=== PATIENT | male | born 1980 | race Caucasian/White ===

== ENCOUNTER 2018-10-13 13:27 | Emergency (ER) | payer MEDICAID ==
--- NOTE | 2018-10-13 14:14 | ED Physician Documentation ---
PD HPI MHE - Stated complaint Stated Complaint: MHE - Chief complaint Chief Complaint: MHE - History obtained from History obtained from: Patient, Family - History of Present Illness Primary symptom: Self harm - other, Psychosis, Off meds Timing - onset: Yesterday Contributing factors: No: Substance abuse - ETOH Similar symptoms before: Diagnosis (Bipolar) Recently seen: Not recently seen - Additional information Additional information: This is a 38-year-old man who lives with his parents who presents for evaluation for psychiatric eval. Patient just tells me that he is "going crazy". He says he is not hearing voices seeing things. He does not feel suicidal. He does have a history of bipolar disorder and was on medications, Depakote" a long time ago but says that he is never been admitted to the hospital before for psychiatric reasons. He denies any physical illness sore throat, coughing, vomiting, fever. He says he is waiting for his dad to give him a shower and just keeps repeating that. Patient keeps his eyes closed throughout the entire interview he looks angry with pursed lips and frequently shakes his head no. Parents are at the bedside and tell me that he does have a history of psychiatric admissions for bipolar 1 time in 2008 at [facility] where he was there for about 2 weeks that is when I think he was on the Depakote medication. There was another time when he was living in [place] that he may have been admitted to a psychiatric hospital but they are not certain that was what the admission actually was. 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 He is been getting progressively more irritable and they do not think he is sleeping well. Yesterday dad heard some loud banging noises coming from downstairs in the basement where the patient has been staying so he went downstairs and found him curled up in a position in the corner of the room. He would not talk to him at all. He was clutching at his hair pulling it out. His mother got him u pstairs with them by reciting some Hail Gris's in the boards prior. Once he was up there he was just sitting on the couch not saying anything with his eyes closed. They convinced him to stay upstairs for the night but about 2 AM this morning he was on the front porch ringing the doorbell repeatedly and although he was not violent he was acting just unusual. Seems to be angry all the time. To their knowledge there is no substance abuse or alcoholism. 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 They did hear him coughing pretty violently couple of days ago and he complained of a sore throat after that. He is felt warm. Review of Systems Unable to obtain: Other (Patient incapable of providing accurate history.) Constitutional: denies: Fever Respiratory: reports: Cough GI: denies: Nausea, Vomiting PD PAST MEDICAL HISTORY - Past Medical History Psych: Bipolar disorder - Present Medications Home Medications: Ambulatory Orders Medication Instructions Recorded Confirmed No Known Home Medications 10/13/18 10/13/18 - Allergies Allergies/Adverse Reactions: Allergies Allergy/AdvReac Type Severity Reaction Status Date / Time No Known Drug Allergies Allergy Verified 10/13/18 13:39 PD ED PE NORMAL - Vitals Vital signs reviewed: Yes - General General: Alert and oriented X 3, No acute distress, Well developed/nourished, Other (Patient is laying on the exam table with his eyes closed. He did open them at my request so that I can see his pupils but he would not look at me otherwise. He has his lips pursed and is shaking his head no on frequent occasion. He declined several of the exam items requested although he did allow me to listen to his heart and his lungs.) - HEENT HEENT: Atraumatic, PERRL, Moist mucous membranes, Pharynx benign - Cardiac Cardiac: RRR, No murmur - Respiratory Respiratory: No respiratory distress, Clear bilaterally - Abdomen Abdomen: Normal bowel sounds, Soft - Derm Derm: Other (Would not allow me to examine his upper extremities or wrists.) - Neuro Neuro: Other (Patient does know that he is at the hospital. He does not know what day it is. He tells me that he has not seen his parents in quite some time even though they are sitting directly at the bedside.) - Psych Psych: Other (See above.) Results - Vitals Vitals: Vital Signs - 24 hr 10/13/18 10/13/18 10/13/18 13:34 15:57 22:56 Temperature 36.9 C Heart Rate 80 66 76 Respiratory 18 14 14 Rate Blood Pressure 137/84 H 131/78 H 110/78 O2 Saturation 100 100 98 Oxygen O2 Source Room air - EKG (time done) 1430 Rate: Rate (enter#) Rhythm: NSR Ischemia: Normal ST segments Other comments: Other comments (There is a lot of artifact but I do not agree with the interpretation that this is atrial fibrillation. Plan to repeat an EKG to see if we can get less artifact.) Compare to prior EKG: Old EKG unavailable Computer interpretation: Disagree with computer 1529 Rate: Rate (enter#) Rhythm: NSR Intervals: Normal MT QRS: Normal Ischemia: Normal ST segments, T wave inversion (III and aVF) Compare to prior EKG: Changed from prior EKG (The prior EKG done an hour ago had artifact that made it look like he was in a flutter.) Computer interpretation: Agree with computer - Labs Labs: Laboratory Tests 10/13/18 10/13/18 10/13/18 14:22 14:22 14:22 WBC 6.6 RBC 4.76 Hgb 14.4 Hct 42.6 MCV 89.5 MCH 30.2 MCHC 33.7 RDW 12.7 Plt Count 243 MPV 7.5 Neut # (Auto) 3.6 Lymph # (Auto) 2.3 [place] # (Auto) 0.5 Eos # (Auto) 0.1 Baso # (Auto) 0.1 Absolute Nucleated RBC 0.00 Nucleated RBC % 0.1 Sodium 138 Potassium 3.3 L Chloride 102 Carbon Dioxide 23 Anion Gap 13.0 BUN 15 Creatinine 0.8 Estimated GFR (MDRD) 107 Glucose 91 Calcium 9.9 Total Bilirubin 1.5 H AST 23 ALT 13 Alkaline Phosphatase 51 Total Protein 8.3 H Albumin 4.6 Globulin 3.7 Albumin/Globulin Ratio 1.2 Lipase 31 TSH 1.90 Urine Color Urine Clarity Urine pH Ur Specific [place] Urine Protein Urine Glucose (UA) Urine Ketones Urine Occult Blood Urine Nitrite Urine Bilirubin Urine Urobilinogen Ur Leukocyte Esterase Ur Microscopic Review Urine Culture Comments Salicylates < 6.0 Urine Opiates Screen Ur Oxycodone Screen Urine Methadone Screen Ur Propoxyphene Screen Acetaminophen < 10 L Ur Barbiturates Screen Ur Tricyclics Screen Ur Phencyclidine Scrn Ur Amphetamine Screen U Methamphetamines Scrn U Benzodiazepines Scrn Urine Cocaine Screen U Cannabinoids Screen Ethyl Alcohol < 5.0 10/13/18 15:22 WBC RBC Hgb Hct MCV MCH MCHC RDW Plt Count MPV Neut # (Auto) Lymph # (Auto) [place] # (Auto) Eos # (Auto) Baso # (Auto) Absolute Nucleated RBC Nucleated RBC % Sodium Potassium Chloride Carbon Dioxide Anion Gap BUN Creatinine Estimated GFR (MDRD) Glucose Calcium Total Bilirubin AST ALT Alkaline Phosphatase Total Protein Albumin Globulin Albumin/Globulin Ratio Lipase TSH Urine Color YELLOW Urine Clarity CLEAR Urine pH 6.0 Ur Specific [place] 1.025 Urine Protein NEGATIVE Urine Glucose (UA) NEGATIVE Urine Ketones TRACE Urine Occult Blood NEGATIVE Urine Nitrite NEGATIVE Urine Bilirubin NEGATIVE Urine Urobilinogen 0.2 (NORMAL) Ur Leukocyte Esterase NEGATIVE Ur Microscopic Review NOT INDICATED Urine Culture Comments NOT INDICATED Salicylates Urine Opiates Screen NEGATIVE Ur Oxycodone Screen NEGATIVE Urine Methadone Screen NEGATIVE Ur Propoxyphene Screen NEGATIVE Acetaminophen Ur Barbiturates Screen NEGATIVE Ur Tricyclics Screen NEGATIVE Ur Phencyclidine Scrn NEGATIVE Ur Amphetamine Screen NEGATIVE U Methamphetamines Scrn NEGATIVE U Benzodiazepines Scrn NEGATIVE Urine Cocaine Screen NEGATIVE U Cannabinoids Screen NEGATIVE Ethyl Alcohol - Rads (name of study) CXR Radiology: See rad report (Neg acute) head CT Radiology: See rad report (neg acute) PD MEDICAL DECISION MAKING - ED course Complexity details: re-evaluated patient ED course: 1535:The patient is lying on the exam table on his back. He is repeatedly saying "do not do this to me". He is got his eyes clenched shut he is moving his legs and arms just randomly. He cannot tell me what it is that he wants someone to stop doing to him. He reiterated to me that he wants help but cannot specify from what. We are awaiting the results of the drug screen so that we can contact social work for any evaluation. Patient has become increasingly more agitated as he has spent time here in the department at times he is moaning and thrashing around in the bed but not aggressive in any way. He actually seems to me like he is hallucinating because he keeps requesting that we "do not do that to him". He was evaluated by our social work team who feels that he needs involuntary placement because he cannot consent for treatment in his current mental state. The [facility] pit manager was here I discussed the case at length with her she feels the patient should be admitted as I do and is good to work on placement. The DCMP worker was unsuccessful at finding him placement tonight. This was discussed with the family regarding keep him here overnight and try again in the morning. Plan to medicate him only if needed. Care will be turned over to Dr. Mcelroy.
[2018-10-13 14:30] LABS: BASOPHILS # (AUTO) 0.1 10^3/uL (0.0-0.1); BASOPHILS % (AUTO) 0.8 %; EOSINOPHILS # (AUTO) 0.1 10^3/uL (0.0-0.7); EOSINOPHILS % (AUTO) 1.2 %; HGB - HEMOGLOBIN 14.4 g/dL (14.0-18.0); LYMPHOCYTES # (AUTO) 2.3 10^3/uL (1.5-3.5); LYMPHOCYTES % (AUTO) 34.9 %; MEAN CORPUSCULAR HEMOGLOBIN 30.2 pg (27.0-31.0); MEAN CORPUSCULAR HGB CONC 33.7 g/dL (32.0-36.0); MEAN CORPUSCULAR VOLUME 89.5 fL (80.0-94.0); MEAN PLATELET VOLUME 7.5 fL (7.4-11.4); MONOCYTES # (AUTO) 0.5 10^3/uL (0.0-1.0); MONOCYTES % (AUTO) 8.2 %; NEUTROPHILS # (AUTO) 3.6 10^3/uL (1.5-6.6); NEUTROPHILS % (AUTO) 54.9 %; PLT - PLATELET COUNT 243 10^3/uL (130-450); RED BLOOD COUNT 4.76 10^6/uL (4.70-6.10); RED CELL DISTRIBUTION WIDTH 12.7 % (12.0-15.0); WHITE BLOOD COUNT 6.6 x10^3/uL (4.8-10.8)
[2018-10-13 14:44] LABS: ACETAMINOPHEN < 10 ug/mL (10-30); ALBUMIN 4.6 g/dL (3.2-5.5); ALBUMIN/GLOBULIN RATIO 1.2 (1.0-2.2); ALKALINE PHOSPHATASE 51 IU/L (42-121); ALT ALANINE AMINOTRANSFERASE 13 IU/L (10-60); AST ASPARTATE AMINOTRANSFERASE 23 IU/L (10-42); BILIRUBIN,TOTAL 1.5 mg/dL (0.2-1.0); BUN - BLOOD UREA NITROGEN 15 mg/dL (6-20); CALCIUM 9.9 mg/dL (8.5-10.3); CARBON DIOXIDE - CO2 23 mmol/L (21-32); CHLORIDE 102 mmol/L (101-111); CREATININE 0.8 mg/dL (0.6-1.2); GFR - MDRD 107 (>89); GLUCOSE 91 mg/dL (70-100); LIPASE 31 U/L (22-51); SALICYLATE < 6.0 mg/dL; SODIUM 138 mmol/L (135-145); TOTAL PROTEIN 8.3 g/dL (6.7-8.2)
--- NOTE | 2018-10-13 15:00 | CT Report ---
Reason: hitting head; AMS Procedure Date: 10/13/2018 Accession Number: [id number] / [id number] Procedure: CT - HEAD WO CPT Code: FULL RESULT: EXAM: CT HEAD EXAM DATE: 10/13/2018 02:54 PM. CLINICAL HISTORY: Hitting head; AMS. COMPARISON: None. TECHNIQUE: Multiaxial CT images were obtained from the foramen magnum to the vertex. Reformats: Sagittal and coronal. IV contrast: None. In accordance with CT protocol optimization, one or more of the following dose reduction techniques were utilized for this exam: automated exposure control, adjustment of mA and/or KV based on patient size, or use of iterative reconstructive technique. FINDINGS: Parenchyma: No intraparenchymal hemorrhage. No evidence of mass, midline shift, or CT findings of infarction. Fine-white differentiation is distinct. Extraaxial Spaces: Normal for age. No subdural or epidural collections. Ventricles: Normal in size and position. Sinuses and Orbits: Imaged paranasal sinuses, orbits, and mastoids show no significant abnormality. Bones: Unremarkable. Other: None. IMPRESSION: Normal head CT. RADIA
[2018-10-13 15:25] LABS: MUDS CUTOFF CONCENTRATIONS CUTOFF CONC BELOW:
--- NOTE | 2018-10-13 15:27 | XRAY Report ---
Reason: cough Procedure Date: 10/13/2018 Accession Number: [id number] / [id number] Procedure: XR - Chest 2 View X-Ray CPT Code: 87909 FULL RESULT: EXAM: CHEST RADIOGRAPHY EXAM DATE: 10/13/2018 03:06 PM. CLINICAL HISTORY: Cough. COMPARISON: None. TECHNIQUE: 2 views. FINDINGS: Lungs/Pleura: Mild interstitial prominence. No localized infiltrate, consolidation, effusion, or pneumothorax. Mediastinum: Overall heart size upper limit of normal. Upper lobe vessels not distended. Other: Old left clavicle fracture. IMPRESSION: Mild interstitial prominence, chronic change versus bronchitis. RADIA
[2018-10-13 15:29] LABS: BILIRUBIN,URINE NEGATIVE (NEGATIVE); GLUCOSE, URINE (UA) NEGATIVE (NEGATIVE); KETONES,URINE (UA) TRACE mg/dL (NEGATIVE); LEUKOCYTE ESTERASE, URINE NEGATIVE (NEGATIVE); NITRITE,URINE NEGATIVE (NEGATIVE); OCCULT BLOOD,URINE NEGATIVE (NEGATIVE); PROTEIN,URINE NEGATIVE (NEGATIVE); UROBILINOGEN,URINE 0.2 (NORMAL) E.U./dL (NORMAL)
[2018-10-13 15:30] LABS: CLARITY,URINE CLEAR (CLEAR)
[2018-10-13] MEDS ORDERED: POTASSIUM CHLORIDE 20 MEQ TABLET PO ONE (15:33)
[2018-10-13 15:38] LABS: AMPHETAMINE SCREEN,URINE NEGATIVE (NEGATIVE); BENZODIAZEPINES SCREEN, URINE NEGATIVE (NEGATIVE); COCAINE SCREEN URINE NEGATIVE (NEGATIVE); METHADONE SCREEN, URINE NEGATIVE (NEGATIVE); METHAMPHETAMINES SCREEN, URINE NEGATIVE (NEGATIVE); OPIATE SCREEN, URINE NEGATIVE (NEGATIVE); OXYCODONE SCREEN, URINE NEGATIVE (NEGATIVE); PROPOXYPHENE SCREEN, URINE NEGATIVE (NEGATIVE); TRICYCLIC ANTIDEPRESSANT,URINE NEGATIVE (NEGATIVE)
[2018-10-14 11:10] VITALS: BP 117/84
== END 2018-10-14 11:10 | disposition home or self-care (01) ==
LOC: ED 13:27
DX: F23 Brief psychotic disorder (principal); F31.9 Bipolar disorder, unspecified; R45.1 Restlessness and agitation; R94.31 Abnormal electrocardiogram [ECG] [EKG]
CPT/HCPCS: 36415; 70450; 71046; 80053; 80306; 80307; 80320; 80329; 81003; 83690; 84443; 85025; 93005; 99283; 99284; A9270; 81001; 87086

== ENCOUNTER 2020-12-04 22:01 | Outpatient (CLI) | payer MEDICAID | END 2020-12-04 22:02 | disposition critical access hospital (66) | LOC: EMS 22:01 | DX: R41.82 Altered mental status, unspecified (principal); N48.89 Other specified disorders of penis | CPT/HCPCS: A0425; A0429 ==

== ENCOUNTER 2020-12-04 22:13 | Emergency (ER) | payer MEDICAID ==
--- NOTE | 2020-12-04 22:22 | ED Physician Documentation ---
PD HPI ALTERED MENTAL STATUS - Stated complaint Stated Complaint: AMS - History obtained from History obtained from: Family (through [facility]), EMS - History of Present Illness Timing - onset: Today (Medics state the patient lives in downstairs apartment in his parents house. He usually stays in by himself. They bring him groceries. They heard coughing type sounds and checked on him, and he was uncommunicative and not interacting. He has not been on psych meds for months or more.) Timing - details: Other (unclear timing as parents don't check on him for days at a time.) Quality / character: Less responsive, Agitated Associated symptoms: No: Fever, Headache Contributing factors: Known psych illness. No: Intoxicated, Substance abuse Basline status: Alert and oriented X 3, Ambulatory Treatment BRANCH OFFICER: Accucheck Similar symptoms before: Diagnosis (parents state he has had similar episodes due to psych issues in the past, with resolution with meds.) Recently seen: Not recently seen Review of Systems Unable to obtain: Unresponsive, Uncooperative PD PAST MEDICAL HISTORY - Past Medical History Cardiovascular: None Respiratory: None Neuro: None Endocrine/Autoimmune: None GI: None : None HEENT: None Psych: Bipolar disorder Musculoskeletal: None Derm: None - Past Surgical History Past Surgical History: Yes HEENT: Tonsil/Adenoidectomy - Present Medications Home Medications: Ambulatory Orders Medication Instructions Recorded Confirmed Divalproex ER [Depakote ER] 250 mg PO TID #40 tablet 10/14/18 ARIPiprazole [Abilify] 15 mg PO DAILY 30 Days #30 tablet 12/05/20 Divalproex ER [Depakote ER] 250 mg PO DAILY 30 Days #30 tablet 12/05/20 LORazepam [Ativan] 0.5 mg PO QPM PRN #10 tablet 12/05/20 - Allergies Allergies/Adverse Reactions: Allergies Allergy/AdvReac Type Severity Reaction Status Date / Time No Known Drug Allergies Allergy Verified 12/17/19 23:31 - Social History Does the pt smoke?: No Smoking Status: Never smoker Does the pt drink ETOH?: No Does the pt have substance abuse?: No - Immunizations Immunizations are current?: No - POLST Patient has POLST: No PD ED PE NORMAL - Vitals Vital signs reviewed: Yes - General General: Well developed/nourished (but disheveled right now), Other (he is moaning continually. Seems to react with abd palpation but no guarding. ) - HEENT HEENT: Atraumatic - Neck Neck: Supple, no meningeal sign, No adenopathy - Cardiac Cardiac: RRR (mild tachycardia), No murmur - Respiratory Respiratory: No respiratory distress, Clear bilaterally - Abdomen Abdomen: Soft, Non distended, No organomegaly, Other (seems tender central and upper abd. ). No: Normal bowel sounds (diminished) - Derm Derm: Normal color, Warm and dry - Extremities Extremities: No deformity, No edema - Neuro Neuro: No motor deficit Results - Vitals Vitals: Vital Signs - 24 hr 12/04/20 12/04/20 12/04/20 22:21 22:50 23:33 Temperature 37.3 C Heart Rate 105 H 86 72 Respiratory 38 H 22 15 Rate Blood Pressure 158/92 H 160/89 H 125/73 O2 Saturation 98 95 95 12/05/20 12/05/20 12/05/20 00:00 00:01 00:30 Temperature 36.6 C 36.6 C Heart Rate 70 67 Respiratory 16 22 Rate Blood Pressure 125/73 111/72 O2 Saturation 97 96 12/05/20 01:00 Temperature Heart Rate 69 Respiratory 20 Rate Blood Pressure 126/70 O2 Saturation 98 Oxygen O2 Source Room air - EKG (time done) 22:36 Rate: Rate (enter#) (82) Rhythm: NSR [place]: Normal Intervals: Normal MT QRS: Normal Ischemia: Normal ST segments. No: ST elevation c/w ischemia, ST depression - Labs Labs: Laboratory Tests 12/04/20 12/04/20 12/04/20 22:25 22:25 22:25 WBC 14.9 H RBC 5.38 Hgb 16.5 Hct 48.8 MCV 90.7 MCH 30.7 MCHC 33.8 RDW 11.4 L Plt Count 315 MPV 9.4 Neut # (Auto) 11.2 H Lymph # (Auto) 2.4 [place] # (Auto) 1.2 H Eos # (Auto) 0.0 Baso # (Auto) 0.1 Absolute Nucleated RBC 0.00 Nucleated RBC % 0.0 Sodium 139 Potassium 3.7 Chloride 104 Carbon Dioxide 22 Anion Gap 13.0 BUN 19 Creatinine 1.0 Estimated GFR (MDRD) 82 L Glucose 122 H Lactic Acid Calcium 9.6 Total Bilirubin 1.6 H AST 37 ALT 22 Alkaline Phosphatase 75 Total Creatine Kinase 1080 H* Total Protein 8.4 H Albumin 4.9 Globulin 3.6 Albumin/Globulin Ratio 1.4 Lipase 25 TSH 2.62 Urine Color Urine Clarity Urine pH Ur Specific [place] Urine Protein Urine Glucose (UA) Urine Ketones Urine Occult Blood Urine Nitrite Urine Bilirubin Urine Urobilinogen Ur Leukocyte Esterase Urine RBC Urine WBC Ur Squamous Epith Cells Urine Bacteria Urine Casts Urine Mucus Ur Microscopic Review Urine Culture Comments Nasal Adenovirus (PCR) Nasal B. parapertussis DNA (PCR) Nasal Coronavir 229E PCR Nasal Coronavir HKU1 PCR Nasal Coronavir NL63 PCR Nasal Coronavir OC43 PCR Nasal Enterovir/Rhinovir PCR Nasal Influenza B PCR Nasal Influenza A PCR Nasal Parainfluen 1 PCR Nasal Parainfluen 2 PCR Nasal Parainfluen 3 PCR Nasal Parainfluen 4 PCR Nasal RSV (PCR) Nasal B.pertussis DNA PCR Nasal C.pneumoniae (PCR) Christopher Human Metapneumo PCR Nasal M.pneumoniae (PCR) Nasal SARS-CoV-2 (PCR) Salicylates < 6.0 Urine Opiates Screen Ur Oxycodone Screen Urine Methadone Screen Ur Propoxyphene Screen Acetaminophen < 10 L Ur Barbiturates Screen Ur Tricyclics Screen Ur Phencyclidine Scrn Ur Amphetamine Screen U Methamphetamines Scrn U Benzodiazepines Scrn Urine Cocaine Screen U Cannabinoids Screen Ethyl Alcohol < 5.0 12/04/20 12/04/20 12/04/20 22:39 22:40 22:50 WBC RBC Hgb Hct MCV MCH MCHC RDW Plt Count MPV Neut # (Auto) Lymph # (Auto) [place] # (Auto) Eos # (Auto) Baso # (Auto) Absolute Nucleated RBC Nucleated RBC % Sodium Potassium Chloride Carbon Dioxide Anion Gap BUN Creatinine Estimated GFR (MDRD) Glucose Lactic Acid 1.7 Calcium Total Bilirubin AST ALT Alkaline Phosphatase Total Creatine Kinase Total Protein Albumin Globulin Albumin/Globulin Ratio Lipase TSH Urine Color YELLOW Urine Clarity CLEAR Urine pH 5.5 Ur Specific [place] >=1.030 H Urine Protein TRACE Urine Glucose (UA) NEGATIVE Urine Ketones >=80 H Urine Occult Blood MODERATE H Urine Nitrite NEGATIVE Urine Bilirubin NEGATIVE Urine Urobilinogen 1 (NORMAL) Ur Leukocyte Esterase NEGATIVE Urine RBC 6-10 H Urine WBC 0-3 Ur Squamous Epith Cells NONE SEEN Urine Bacteria Rare Urine Casts 0-2 Hyaline Casts Urine Mucus Moderate Strands Ur Microscopic Review INDICATED Urine Culture Comments NOT INDICATED Nasal Adenovirus (PCR) NOT DETECTED Nasal B. parapertussis DNA (PCR) NOT DETECTED Nasal Coronavir 229E PCR NOT DETECTED Nasal Coronavir HKU1 PCR NOT DETECTED Nasal Coronavir NL63 PCR NOT DETECTED Nasal Coronavir OC43 PCR NOT DETECTED Nasal Enterovir/Rhinovir PCR NOT DETECTED Nasal Influenza B PCR NOT DETECTED Nasal Influenza A PCR NOT DETECTED Nasal Parainfluen 1 PCR NOT DETECTED Nasal Parainfluen 2 PCR NOT DETECTED Nasal Parainfluen 3 PCR NOT DETECTED Nasal Parainfluen 4 PCR NOT DETECTED Nasal RSV (PCR) NOT DETECTED Nasal B.pertussis DNA PCR NOT DETECTED Nasal C.pneumoniae (PCR) NOT DETECTED Christopher Human Metapneumo PCR NOT DETECTED Nasal M.pneumoniae (PCR) NOT DETECTED Nasal SARS-CoV-2 (PCR) NOT DETECTED Salicylates Urine Opiates Screen NEGATIVE Ur Oxycodone Screen NEGATIVE Urine Methadone Screen NEGATIVE Ur Propoxyphene Screen NEGATIVE Acetaminophen Ur Barbiturates Screen NEGATIVE Ur Tricyclics Screen NEGATIVE Ur Phencyclidine Scrn NEGATIVE Ur Amphetamine Screen NEGATIVE U Methamphetamines Scrn NEGATIVE U Benzodiazepines Scrn NEGATIVE Urine Cocaine Screen NEGATIVE U Cannabinoids Screen NEGATIVE Ethyl Alcohol - Rads (name of study) head CT Radiology: Prelim report reviewed (no acute findings), See rad report chest/abd CT Radiology: Prelim report reviewed (no acute process), See rad report PD MEDICAL DECISION MAKING - ED course Complexity details: reviewed results (no obvious cause for altered mental status, and he improves readily here. Presume psychogenic. ), re-evaluated patient (the patient was amazingly awake, conversant and acting normally after some time in ER and post Ativan. He denies intoxication/drugs. ), considered differential (unclear if conversion or if metabolic/infectious process. ), d/w patient ED course: He says he will resume his usual meds, so I wrote Rx for them. Departure - Departure Disposition: 01 Home, Self Care Clinical Impression: Dehydration Altered mental status, unspecified Qualifiers: Altered mental status type: delirium Qualified Code(s): R41.0 - Disorientation, unspecified Bipolar disorder Qualifiers: Active/Remission status: remission status unspecified Qualified Code(s): F31.9 - Bipolar disorder, unspecified Condition: Stable Record reviewed to determine appropriate education?: Yes Follow-Up: [facility] [Provider Group] [facility] [Provider Group] Prescriptions: ARIPiprazole [Abilify] 15 mg PO DAILY 30 Days #30 tablet LORazepam [Ativan] 0.5 mg PO QPM PRN #10 tablet PRN Reason: Insomnia Divalproex ER [Depakote ER] 250 mg PO DAILY 30 Days #30 tablet Comments: Hydrated. Resume your previous prescriptions of Abilify and Depakote. Add lorazepam at night if needed for sleep. Follow-up with the primary care provider. You could also follow-up with [facility] regarding counseling and medication as well. Discharge Date/Time: 12/05/20 01:27
[2020-12-04] MEDS ORDERED: LORazepam 2 MG/ML VIAL IVP STA (22:24)
[2020-12-04] MEDS ORDERED: SODIUM CHLORIDE 0.9% 1,000 ML IV STA (22:24)
[2020-12-04 22:31] LABS: BASOPHILS # (AUTO) 0.1 10^3/uL (0.0-0.1); BASOPHILS % (AUTO) 0.3 %; EOSINOPHILS % (AUTO) 0.1 %; HCT - HEMATOCRIT 48.8 % (42.0-52.0); HGB - HEMOGLOBIN 16.5 g/dL (14.0-18.0); LYMPHOCYTES # (AUTO) 2.4 10^3/uL (1.5-3.5); MEAN CORPUSCULAR HEMOGLOBIN 30.7 pg (27.0-31.0); MEAN CORPUSCULAR HGB CONC 33.8 g/dL (32.0-36.0); MEAN CORPUSCULAR VOLUME 90.7 fL (80.0-94.0); MEAN PLATELET VOLUME 9.4 fL (7.4-11.4); MONOCYTES # (AUTO) 1.2 10^3/uL (0.0-1.0); MONOCYTES % (AUTO) 8.1 %; NEUTROPHILS # (AUTO) 11.2 10^3/uL (1.5-6.6); NEUTROPHILS % (AUTO) 75.2 %; PLT - PLATELET COUNT 315 10^3/uL (130-450); RED BLOOD COUNT 5.38 10^6/uL (4.70-6.10); RED CELL DISTRIBUTION WIDTH 11.4 % (12.0-15.0); WHITE BLOOD COUNT 14.9 x10^3/uL (4.8-10.8)
[2020-12-04] MEDS ORDERED: IOPAMIDOL-300 100 ML VIAL ONE (22:48)
[2020-12-04 22:52] LABS: ACETAMINOPHEN < 10 ug/mL (10-30); ALBUMIN 4.9 g/dL (3.2-5.5); ALBUMIN/GLOBULIN RATIO 1.4 (1.0-2.2); ALKALINE PHOSPHATASE 75 IU/L (42-121); ALT ALANINE AMINOTRANSFERASE 22 IU/L (10-60); AST ASPARTATE AMINOTRANSFERASE 37 IU/L (10-42); BILIRUBIN,TOTAL 1.6 mg/dL (0.2-1.0); BUN - BLOOD UREA NITROGEN 19 mg/dL (6-20); CALCIUM 9.6 mg/dL (8.5-10.3); CARBON DIOXIDE - CO2 22 mmol/L (21-32); CHLORIDE 104 mmol/L (101-111); ETOH - ETHANOL < 5.0 mg/dL; GFR - MDRD 82 (>89); GLUCOSE 122 mg/dL (70-100); LIPASE 25 U/L (22-51); POTASSIUM 3.7 mmol/L (3.5-5.0); SALICYLATE < 6.0 mg/dL; SODIUM 139 mmol/L (135-145); TOTAL PROTEIN 8.4 g/dL (6.7-8.2)
[2020-12-04 22:54] LABS: CK- CREATINE KINASE 1080 IU/L (22-269)
[2020-12-04] MEDS ORDERED: KETOROLAC 15 MG/ML VIAL IVP STA (22:58)
[2020-12-04 23:05] LABS: MUDS CUTOFF CONCENTRATIONS CUTOFF CONC BELOW:
[2020-12-04 23:09] LABS: GLUCOSE, URINE (UA) NEGATIVE (NEGATIVE); KETONES,URINE (UA) >=80 mg/dL (NEGATIVE); LEUKOCYTE ESTERASE, URINE NEGATIVE (NEGATIVE); NITRITE,URINE NEGATIVE (NEGATIVE); OCCULT BLOOD,URINE MODERATE (NEGATIVE); PH,URINE 5.5 PH (5.0-7.5); PROTEIN,URINE TRACE mg/dL (NEGATIVE); UROBILINOGEN,URINE 1 (NORMAL) E.U./dL (NORMAL)
[2020-12-04 23:24] LABS: BACTERIA,URINE Rare /HPF (None Seen); BILIRUBIN,URINE NEGATIVE (NEGATIVE); CASTS, URINE 0-2 Hyaline Casts /LPF; CLARITY,URINE CLEAR (CLEAR); ICTOTEST,URINE NEGATIVE; MUCUS,URINE Moderate Strands; SQUAMOUS EPITHELIAL CELL,UR NONE SEEN (<= Few); WBC,URINE 0-3 /HPF (0-3)
[2020-12-04 23:25] LABS: AMPHETAMINE SCREEN,URINE NEGATIVE (NEGATIVE); BARBITURATE SCREEN,UR NEGATIVE (NEGATIVE); BENZODIAZEPINES SCREEN, URINE NEGATIVE (NEGATIVE); COCAINE SCREEN URINE NEGATIVE (NEGATIVE); METHADONE SCREEN, URINE NEGATIVE (NEGATIVE); METHAMPHETAMINES SCREEN, URINE NEGATIVE (NEGATIVE); OPIATE SCREEN, URINE NEGATIVE (NEGATIVE); OXYCODONE SCREEN, URINE NEGATIVE (NEGATIVE); PROPOXYPHENE SCREEN, URINE NEGATIVE (NEGATIVE); THC CANNABINOID SCREEN, URINE NEGATIVE (NEGATIVE); TRICYCLIC ANTIDEPRESSANT,URINE NEGATIVE (NEGATIVE)
[2020-12-04] MEDS ORDERED: IOPAMIDOL-300 100 ML VIAL IVP ONE (23:38)
--- NOTE | 2020-12-04 23:49 | CT Report ---
PROCEDURE: HEAD WO INDICATIONS: altered mental status TECHNIQUE: Noncontrast 4.5 mm thick angled axial sections acquired from the foramen magnum to the vertex. For r adiation dose reduction, the following was used: automated exposure control, adjustment of mA and/or kV according to patient size. COMPARISON: None. FINDINGS: Image quality: Excellent. CSF spaces: Basal cisterns are patent. No extra-axial fluid collections. Ventricles are normal in size and shape. Brain: No midline shift. No intracranial masses or hemorrhage. Fine-white matter interface is norm al. Skull and face: Calvarium and visualized facial bones are intact, without suspicious lesions. Sinuses: Coastal thickening in the bilateral maxillary sinuses. Mastoids are clear. IMPRESSION: No acute intracranial abnormality. Reviewed by: Lucho Tsang MD on 12/04/2020 11:48 PM PDT Approved by: Lucho Tsang MD on 12/04/2020 11:48 PM PDT Station ID: [id number]
--- NOTE | 2020-12-04 23:54 | CT Report ---
PROCEDURE: CHEST W INDICATIONS: apparent chest/abd pain CONTRAST: IV CONTRAST: Isovue 300 ml: 100 PO CONTRAST: *NO PO CONTRAST TECHNIQUE: After the administration of intravenous contrast, images were acquired from the pulmonary apices to t he posterior costophrenic angles. Multiplanar MIP reformats were acquired. For radiation dose reduc tion, the following was used: automated exposure control, adjustment of mA and/or kV according to pa tient size. COMPARISON: None. FINDINGS: Image quality: Good, respiratory motion. Lungs and pleura: No acute air space opacities. No pleural effusions or pneumothorax. Central and peripheral airways are patent and normal in caliber. Mediastinum: Heart size is normal. No pericardial effusion. No mediastinal or hilar adenopathy by size criteria. Thoracic aorta and central pulmonary arteries are normal in size. No obvious central pulmonary embolism. Esophagus is normal in caliber. No hiatal hernia. Bones and chest wall: No suspicious bony lesions. No vertebral body compression fractures. Right po sterior seventh rib bone island. No axillary or supraclavicular adenopathy by size criteria. The thy roid is normal in size and there are no incidental findings. Abdomen: Visualized upper abdominal solid organs appear normal. Upper abdominal bowel loops are nor mal in caliber. IMPRESSION: 1. No acute airspace opacity identified. 2. No fractures seen. Reviewed by: Lucho Tsang MD on 12/04/2020 11:53 PM PDT Approved by: Lucho Tsang MD on 12/04/2020 11:53 PM PDT Station ID: [id number]
--- NOTE | 2020-12-04 23:58 | CT Report ---
PROCEDURE: Abdomen/Pelvis W INDICATIONS: apparent abd tenderness CONTRAST: IV CONTRAST: Isovue 300 ml: 100 PO CONTRAST: *NO PO CONTRAST TECHNIQUE: After the administration of intravenous contrast, 5 mm thick sections acquired from the diaphragms to the symphysis. 5 mm thick coronal and sagittal reformats were acquired. For radiation dose reducti on, the following was used: automated exposure control, adjustment of mA and/or kV according to glory ent size. COMPARISON: Same day CT chest. FINDINGS: Image quality: Excellent. ABDOMEN: Lung bases: Lung bases are clear. Heart size is normal. Solid organs: Liver and spleen are normal in size and enhancement. Gallbladder is not distended. No calcific gallstones. Biliary system is non dilated. Pancreas enhances normally. No adrenal nodule s. Kidneys demonstrate normal size and enhancement, without hydronephrosis. Peritoneum and bowel: Bowel loops demonstrate normal wall thickness and caliber. A few colonic diver ticuli. Normal appendix. No free fluid or air. Nodes and vessels: No retroperitoneal or mesenteric adenopathy by size criteria. Aorta and inferior vena cava are normal in size. Miscellaneous: No ventral hernias. PELVIS: Genitourinary: Bladder is compressed with Kirby catheter. Miscellaneous: No inguinal hernias or adenopathy. Bones: No suspicious bony lesions. Mild degenerative change. No vertebral body compression fractures . IMPRESSION: No acute abnormality identified. No free fluid. Normal appendix. No small bowel obstruction. Reviewed by: Lucho Tsang MD on 12/04/2020 11:57 PM PDT Approved by: Lucho Tsang MD on 12/04/2020 11:57 PM PDT Station ID: [id number]
[2020-12-05 00:10] LABS: B. PARAPERTUSSIS- RESP PCR PAN NOT DETECTED; B. PERTUSSIS- RESP PCR PANEL NOT DETECTED; C. PNEUMONIAE- RESP PCR PANEL NOT DETECTED; CORONAVIRUS 229E-RESP PCR NOT DETECTED; CORONAVIRUS HKU1-RESP PCR NOT DETECTED; CORONAVIRUS NL63-RESP PCR NOT DETECTED; CORONAVIRUS OC43-RESP PCR NOT DETECTED; HUMAN METAPNEUMOVIRUS NOT DETECTED; INFLUENZA A- RESP PCR PANEL NOT DETECTED; INFLUENZA B - RESP PCR PANEL NOT DETECTED; M. PNEUMONIAE- RESP PCR PANEL NOT DETECTED; PARAINFLUENZA VIRUS 1 NOT DETECTED; PARAINFLUENZA VIRUS 2 NOT DETECTED; PARAINFLUENZA VIRUS 3 NOT DETECTED; PARAINFLUENZA VIRUS 4 NOT DETECTED; RHINOVIRUS/ENTEROVIRUS NOT DETECTED; RSV- RESP PCR PANEL NOT DETECTED; SARS-CoV-2 -RESP PCR PANEL NOT DETECTED
[2020-12-05 01:25] VITALS: BP 126/70
== END 2020-12-05 01:27 | disposition home or self-care (01) ==
LOC: EDUNIT# → ED 22:13
DX: F31.9 Bipolar disorder, unspecified (principal); E86.0 Dehydration; Z20.822 Contact with and (suspected) exposure to COVID-19
CPT/HCPCS: 0202U; 36415; 70450; 71260; 74177; 80053; 80306; 80307; 80320; 80329; 81001; 82550; 83605; 83690; 84443; 85025; 93005; 96361; 96374; 96375; 99283; 99284; J2060; Q9967; 81003; 87086

== ENCOUNTER 2021-05-06 12:17 | Outpatient (CLI) | payer MEDICAID | END 2021-05-06 12:18 | disposition critical access hospital (66) | LOC: EMS 12:17 | DX: R40.4 Transient alteration of awareness (principal) | CPT/HCPCS: A0425; A0429; A0999 ==

== ENCOUNTER 2021-05-06 12:28 | Emergency (ER) | payer MEDICAID ==
[2021-05-06] MEDS ORDERED: LORazepam 2 MG/ML VIAL IVP STA (12:35)
--- NOTE | 2021-05-06 12:38 | ED Physician Documentation ---
PD HPI MHE - Stated complaint Stated Complaint: AMS - History obtained from History obtained from: EMS - Additional information Additional information: 41-year-old gentleman with bipolar disorder who lives alone. Last seen normal 3 days ago. Found by his parents today to have altered mental status and this is consistent with prior episodes of similar episodes of catatonia. He is responsive to pain only, prehospital blood sugar is normal. There is no evidence of trauma or drugs on scene according to EMS. No history is available from the patient due to altered mental status. Review of Systems Unable to obtain: AMS PD PAST MEDICAL HISTORY - Past Medical History Cardiovascular: None Respiratory: None Neuro: None Endocrine/Autoimmune: None GI: None : None HEENT: None Psych: Bipolar disorder Musculoskeletal: None Derm: None - Past Surgical History Past Surgical History: Yes HEENT: Tonsil/Adenoidectomy - Present Medications Home Medications: Ambulatory Orders Medication Instructions Recorded Confirmed Divalproex ER [Depakote ER] 250 mg PO TID #40 tablet 10/14/18 ARIPiprazole [Abilify] 15 mg PO DAILY 30 Days #30 tablet 12/05/20 Divalproex ER [Depakote ER] 250 mg PO DAILY 30 Days #30 tablet 12/05/20 LORazepam [Ativan] 0.5 mg PO QPM PRN #10 tablet 12/05/20 - Allergies Allergies/Adverse Reactions: Allergies Allergy/AdvReac Type Severity Reaction Status Date / Time No Known Drug Allergies Allergy Verified 05/06/21 12:44 - Social History Does the pt smoke?: No Smoking Status: Never smoker Does the pt drink ETOH?: No Does the pt have substance abuse?: No - Immunizations Immunizations are current?: No - POLST Patient has POLST: No PD ED PE NORMAL - Vitals Vital signs reviewed: Yes - General General: Other (He withdraws to pain and increases grunting with painful stimulus in any of his extremities or with sternal rub. He has a positive gag reflex. There is no evidence of trauma.) - HEENT HEENT: PERRL, Other (Eyes looking straight ahead but when you open his eyelids which are otherwise closed he rolls his eyes up.) - Neck Neck: Supple, no meningeal sign, No bony TTP - Cardiac Cardiac: RRR, No murmur - Respiratory Respiratory: No respiratory distress, Clear bilaterally - Abdomen Abdomen: Normal bowel sounds, Soft, Non tender - Derm Derm: Normal color, Warm and dry - Extremities Extremities: No deformity, No tenderness to palpate, No edema, No calf tenderness / cord - Neuro Neuro: No sensory deficit Eye Opening: None Motor: Withdraws to Pain Verbal: Incomprehensible GCS Score: 7 Results - Vitals Vitals: Vital Signs - 24 hr 05/06/21 05/06/21 05/06/21 12:29 12:44 13:38 Temperature 36.9 C Heart Rate 104 H 101 H Respiratory 24 24 15 Rate Blood Pressure 147/84 H 147/84 H 145/96 H O2 Saturation 96 96 94 05/06/21 15:00 Temperature Heart Rate 100 Respiratory 18 Rate Blood Pressure 141/87 H O2 Saturation 95 Oxygen O2 Source Room air - Labs Labs: Laboratory Tests 05/06/21 05/06/21 05/06/21 12:44 12:44 12:44 WBC 10.9 H RBC 5.58 Hgb 17.3 Hct 50.4 MCV 90.3 MCH 31.0 MCHC 34.3 RDW 11.3 L Plt Count 280 MPV 8.9 Neut # (Auto) 8.3 H Lymph # (Auto) 1.8 [place] # (Auto) 0.7 Eos # (Auto) 0.0 Baso # (Auto) 0.0 Absolute Nucleated RBC 0.00 Nucleated RBC % 0.0 Sodium 137 Potassium 3.8 Chloride 103 Carbon Dioxide 25 Anion Gap 9.0 BUN 12 Creatinine 0.9 Estimated GFR (MDRD) 92 Glucose 112 H Calcium 9.7 Total Bilirubin 1.4 H AST 32 ALT 39 Alkaline Phosphatase 70 Total Protein 8.7 H Albumin 4.8 Globulin 3.8 Albumin/Globulin Ratio 1.2 Lipase 25 Urine Color Urine Clarity Urine pH Ur Specific [place] Urine Protein Urine Glucose (UA) Urine Ketones Urine Occult Blood Urine Nitrite Urine Bilirubin Urine Urobilinogen Ur Leukocyte Esterase Urine RBC Urine WBC Ur Squamous Epith Cells Urine Bacteria Ur Microscopic Review Urine Culture Comments Last Dose Date UNK Last Dose Time UNK Salicylates < 6.0 Urine Opiates Screen Ur Oxycodone Screen Urine Methadone Screen Ur Propoxyphene Screen Acetaminophen < 10 L Ur Barbiturates Screen Valproic Acid < 10.0 Ur Tricyclics Screen Ur Phencyclidine Scrn Ur Amphetamine Screen U Methamphetamines Scrn U Benzodiazepines Scrn Urine Cocaine Screen U Cannabinoids Screen Ethyl Alcohol < 5.0 05/06/21 12:45 WBC RBC Hgb Hct MCV MCH MCHC RDW Plt Count MPV Neut # (Auto) Lymph # (Auto) [place] # (Auto) Eos # (Auto) Baso # (Auto) Absolute Nucleated RBC Nucleated RBC % Sodium Potassium Chloride Carbon Dioxide Anion Gap BUN Creatinine Estimated GFR (MDRD) Glucose Calcium Total Bilirubin AST ALT Alkaline Phosphatase Total Protein Albumin Globulin Albumin/Globulin Ratio Lipase Urine Color DARK YELLOW Urine Clarity CLEAR Urine pH 6.0 Ur Specific [place] 1.020 Urine Protein NEGATIVE Urine Glucose (UA) NEGATIVE Urine Ketones 15 H Urine Occult Blood SMALL H Urine Nitrite NEGATIVE Urine Bilirubin NEGATIVE Urine Urobilinogen 0.2 (NORMAL) Ur Leukocyte Esterase NEGATIVE Urine RBC 0-5 Urine WBC 0-3 Ur Squamous Epith Cells NONE SEEN Urine Bacteria Few Ur Microscopic Review INDICATED Urine Culture Comments NOT INDICATED Last Dose Date Last Dose Time Salicylates Urine Opiates Screen NEGATIVE Ur Oxycodone Screen NEGATIVE Urine Methadone Screen NEGATIVE Ur Propoxyphene Screen NEGATIVE Acetaminophen Ur Barbiturates Screen NEGATIVE Valproic Acid Ur Tricyclics Screen NEGATIVE Ur Phencyclidine Scrn NEGATIVE Ur Amphetamine Screen NEGATIVE U Methamphetamines Scrn NEGATIVE U Benzodiazepines Scrn NEGATIVE Urine Cocaine Screen NEGATIVE U Cannabinoids Screen NEGATIVE Ethyl Alcohol PD MEDICAL DECISION MAKING - ED course ED course: 41-year-old gentleman with a recurrent issue with catatonia. His work-up here was negative and with a milligram of IV Ativan and some time he came back to normal without issue. I offered refills as he has been noncompliant with his medication which he declined. I also offered to call his family which he declined. During the process of discharge though he seemed to relapse into his catatonia and a shot of Haldol was ordered. His IV had been removed at that time so was given IM. On reexamination after this intervention he was again back to normal and agreeable with discharge. He declined refills again or further intervention. Departure - Departure Disposition: 01 Home, Self Care Clinical Impression: Bipolar 1 disorder, Catatonia Condition: Good Record reviewed to determine appropriate education?: Yes Instructions: ED Manic Depression Comments: As discussed, I think it is important for you to be compliant with your medications and follow-up with your psychiatrist. Return for new or worsening symptoms. Discharge Date/Time: 05/06/21 17:14
[2021-05-06 12:51] LABS: BASOPHILS % (AUTO) 0.3 %; EOSINOPHILS % (AUTO) 0.3 %; HCT - HEMATOCRIT 50.4 % (42.0-52.0); HGB - HEMOGLOBIN 17.3 g/dL (14.0-18.0); LYMPHOCYTES # (AUTO) 1.8 10^3/uL (1.5-3.5); LYMPHOCYTES % (AUTO) 16.8 %; MEAN CORPUSCULAR HGB CONC 34.3 g/dL (32.0-36.0); MEAN CORPUSCULAR VOLUME 90.3 fL (80.0-94.0); MEAN PLATELET VOLUME 8.9 fL (7.4-11.4); MONOCYTES # (AUTO) 0.7 10^3/uL (0.0-1.0); MONOCYTES % (AUTO) 6.1 %; NEUTROPHILS # (AUTO) 8.3 10^3/uL (1.5-6.6); NEUTROPHILS % (AUTO) 76.3 %; PLT - PLATELET COUNT 280 10^3/uL (130-450); RED BLOOD COUNT 5.58 10^6/uL (4.70-6.10); RED CELL DISTRIBUTION WIDTH 11.3 % (12.0-15.0); WHITE BLOOD COUNT 10.9 x10^3/uL (4.8-10.8)
[2021-05-06 12:57] LABS: MUDS CUTOFF CONCENTRATIONS CUTOFF CONC BELOW:
[2021-05-06 13:03] LABS: BILIRUBIN,URINE NEGATIVE (NEGATIVE); GLUCOSE, URINE (UA) NEGATIVE (NEGATIVE); KETONES,URINE (UA) 15 mg/dL (NEGATIVE); LEUKOCYTE ESTERASE, URINE NEGATIVE (NEGATIVE); NITRITE,URINE NEGATIVE (NEGATIVE); OCCULT BLOOD,URINE SMALL (NEGATIVE); PROTEIN,URINE NEGATIVE (NEGATIVE); UROBILINOGEN,URINE 0.2 (NORMAL) E.U./dL (NORMAL)
[2021-05-06 13:04] LABS: ACETAMINOPHEN < 10 ug/mL (10-30); ALBUMIN 4.8 g/dL (3.2-5.5); ALBUMIN/GLOBULIN RATIO 1.2 (1.0-2.2); ALKALINE PHOSPHATASE 70 IU/L (42-121); ALT ALANINE AMINOTRANSFERASE 39 IU/L (10-60); AST ASPARTATE AMINOTRANSFERASE 32 IU/L (10-42); BILIRUBIN,TOTAL 1.4 mg/dL (0.2-1.0); BUN - BLOOD UREA NITROGEN 12 mg/dL (6-20); CALCIUM 9.7 mg/dL (8.5-10.3); CARBON DIOXIDE - CO2 25 mmol/L (21-32); CHLORIDE 103 mmol/L (101-111); CREATININE 0.9 mg/dL (0.6-1.2); ETOH - ETHANOL < 5.0 mg/dL; GFR - MDRD 92 (>89); GLUCOSE 112 mg/dL (70-100); LIPASE 25 U/L (22-51); POTASSIUM 3.8 mmol/L (3.5-5.0); SALICYLATE < 6.0 mg/dL; SODIUM 137 mmol/L (135-145); TOTAL PROTEIN 8.7 g/dL (6.7-8.2)
[2021-05-06 13:05] LABS: CLARITY,URINE CLEAR (CLEAR)
[2021-05-06 13:09] LABS: VALPROIC ACID (DEPAKOTE) < 10.0 ug/mL
[2021-05-06 13:14] LABS: AMPHETAMINE SCREEN,URINE NEGATIVE (NEGATIVE); BARBITURATE SCREEN,UR NEGATIVE (NEGATIVE); BENZODIAZEPINES SCREEN, URINE NEGATIVE (NEGATIVE); COCAINE SCREEN URINE NEGATIVE (NEGATIVE); METHADONE SCREEN, URINE NEGATIVE (NEGATIVE); METHAMPHETAMINES SCREEN, URINE NEGATIVE (NEGATIVE); OPIATE SCREEN, URINE NEGATIVE (NEGATIVE); OXYCODONE SCREEN, URINE NEGATIVE (NEGATIVE); PROPOXYPHENE SCREEN, URINE NEGATIVE (NEGATIVE); THC CANNABINOID SCREEN, URINE NEGATIVE (NEGATIVE); TRICYCLIC ANTIDEPRESSANT,URINE NEGATIVE (NEGATIVE)
[2021-05-06 13:17] LABS: RBC,URINE 0-5 /HPF (0-5); SQUAMOUS EPITHELIAL CELL,UR NONE SEEN (<= Few); WBC,URINE 0-3 /HPF (0-3)
[2021-05-06 13:18] LABS: BACTERIA,URINE Few /HPF (None Seen)
--- NOTE | 2021-05-06 13:29 | CT Report ---
PROCEDURE: HEAD WO INDICATIONS: ams TECHNIQUE: Noncontrast 4.5 mm thick angled axial sections acquired from the foramen magnum to the vertex. For r adiation dose reduction, the following was used: automated exposure control, adjustment of mA and/or kV according to patient size. COMPARISON: 12/04/2020 FINDINGS: Image quality: Excellent. CSF spaces: Basal cisterns are patent. No extra-axial fluid collections. Ventricles are normal in size and shape. Brain: No midline shift. No intracranial masses or hemorrhage. Fine-white matter interface is norm al. Skull and face: Calvarium and visualized facial bones are intact, without suspicious lesions. Sinuses: There is mucosal thickening of the maxillary sinuses and ethmoid air cells. IMPRESSION: No acute intracranial abnormality. Reviewed by: Cj Dias on 05/06/2021 12:28 PM [facility] Approved by: Cj Dias on 05/06/2021 12:28 PM [facility] Station ID: [id number]
[2021-05-06 15:44] VITALS: BP 141/87
[2021-05-06] MEDS ORDERED: HALOPERIDOL 5 MG/ML VIAL IM STA (16:28)
== END 2021-05-06 17:14 | disposition home or self-care (01) ==
LOC: EDUNIT# → ED 12:28
DX: F31.9 Bipolar disorder, unspecified (principal); F06.1 Catatonic disorder due to known physiological condition; T50.916A Underdosing of multiple unspecified drugs, medicaments and biological substances, initial encounter; Z91.128 Patient's intentional underdosing of medication regimen for other reason
CPT/HCPCS: 36415; 70450; 80053; 80164; 80306; 80307; 80320; 80329; 81001; 83690; 85025; 96372; 96374; 99281; 99284; J2060; 81003; 87086

== ENCOUNTER 2022-07-17 14:27 | Outpatient (CLI) | payer MEDICAID | END 2022-07-17 23:59 | disposition critical access hospital (66) | LOC: EMS 14:27 | DX: R10.12 Left upper quadrant pain (principal); Z59.00 Homelessness unspecified | CPT/HCPCS: A0425; A0429; A0999 ==

== ENCOUNTER 2022-07-17 14:32 | Emergency (ER) | payer MEDICAID ==
[2022-07-17 14:50] VITALS: BP 122/83
[2022-07-17] MEDS ORDERED: ONDANSETRON ODT 4 MG TABLET TL STA (16:55)
--- NOTE | 2022-07-17 17:01 | ED Physician Documentation ---
PD HPI ABD PAIN - Stated complaint Stated Complaint: N/V/D - Chief complaint Chief Complaint: Abd Pain - History obtained from History obtained from: Patient, EMS - Additional information Additional information: The pt comes to the ED with [facility] for the past couple of days. He has had some diarrhea, too. He states he has not been able to drink as much water as he normally would, because he is afraid it will "come back up;" however, he states he does not feel dehydrated necessarily. He lives in his car, and was out for a walk when he felt a wave of nausea. He stopped to sit down, and a bystander called EMS. Pt states he still has some nausea, but is doing a little better. He did not vomit during the episode which brought him here. Pt states he is otherwise healthy. He denies other complaints at this time. PD PAST MEDICAL HISTORY - Past Medical History Cardiovascular: None Respiratory: None Neuro: None Endocrine/Autoimmune: None GI: None : None HEENT: None Psych: Bipolar disorder Musculoskeletal: None Derm: None - Past Surgical History Past Surgical History: Yes HEENT: Tonsil/Adenoidectomy - Present Medications Home Medications: Ambulatory Orders Medication Instructions Recorded Confirmed Divalproex ER [Depakote ER] 250 mg PO TID #40 tablet 10/14/18 ARIPiprazole [Abilify] 15 mg PO DAILY 30 Days #30 tablet 12/05/20 Divalproex ER [Depakote ER] 250 mg PO DAILY 30 Days #30 tablet 12/05/20 LORazepam [Ativan] 0.5 mg PO QPM PRN #10 tablet 12/05/20 Ondansetron Odt [Zofran] 4 mg TL Q6H PRN #10 tablet 07/17/22 - Allergies Allergies/Adverse Reactions: Allergies Allergy/AdvReac Type Severity Reaction Status Date / Time No Known Drug Allergies Allergy Verified 07/17/22 14:50 - Social History Does the pt smoke?: No Smoking Status: Never smoker Does the pt drink ETOH?: No Does the pt have substance abuse?: No - Immunizations Immunizations are current?: No - POLST Patient has POLST: No PD ED PE NORMAL - Vitals Vital signs reviewed: Yes - General General: Alert and oriented X 3, No acute distress, Well developed/nourished - HEENT HEENT: Atraumatic, PERRL - Neck Neck: Supple, no meningeal sign - Cardiac Cardiac: RRR, No murmur - Respiratory Respiratory: No respiratory distress, Clear bilaterally - Abdomen Abdomen: Soft, Non tender, Non distended - Derm Derm: Warm and dry - Extremities Extremities: No deformity - Neuro Neuro: Alert and oriented X 3 - Psych Psych: Normal mood, Normal affect Results - Vitals Vitals: Oxygen O2 Source Room air PD Medical Decision Making - ED course Complexity details: considered differential, d/w patient ED course: The pt was treated symptomatically in the ED with Zofran, and given a prescription for the same. His sx are consistent with the gastroenteritis that has been very prevalent in our community in recent weeks, and I did discuss this with him. He does not have any abdominal findings, abnormal vital signs, or other complaints to raise further concerns/prompt further work-up. He is stable for d/c, and we have discussed the usual indications for return. Departure - Departure Disposition: 01 Home, Self Care Clinical Impression: Gastroenteritis Condition: Stable Instructions: ED Gastroenteritis Viral Prescriptions: Ondansetron Odt [Zofran] 4 mg TL Q6H PRN #10 tablet PRN Reason: Nausea / Vomiting Comments: Your symptoms are consistent with one of the many viral illnesses that are going around right now. In general, the symptoms last anywhere from a few days to a bout a week. You may take the nausea medication that has been prescribed for you and electronically transmitted to the [facility] here in [place]. Discharge Date/Time: 07/17/22 17:28
== END 2022-07-17 17:28 | disposition home or self-care (01) ==
LOC: EDUNIT# → ED 14:32
DX: K52.9 Noninfective gastroenteritis and colitis, unspecified (principal); Z59.02 Unsheltered homelessness
CPT/HCPCS: 99283; Q0162